=== PATIENT | female | born 2000 | race Hispanic/Latino ===

== ENCOUNTER 2021-06-02 16:42 | Outpatient (CLI) | payer OTHER ==
[~2021-06-02] VITALS: Ht 167.6 cm; Wt 86.1 kg
[2021-06-02 17:01] VITALS: BP 139/93
[2021-06-02 17:14] VITALS: BP 134/88
[2021-06-02] MEDS ORDERED: PRENTAB9 PO (17:17)
[2021-06-02] MEDS ORDERED: FERR325T3 PO (17:17)
[2021-06-02] MEDS ORDERED: HOME MED LIST COMPLETE! XX SCH (17:20)
[2021-06-28] MEDS ORDERED: COLA100C5 PO (05:23)
[2021-06-28] MEDS ORDERED: IBUP80TA PO (05:23)
[2021-06-28] MEDS ORDERED: ACET1TAB55 PO (05:23)
== END 2021-06-02 17:45 | disposition home or self-care (01) ==
LOC: M LDO 16:42
PROVIDERS: ATTEND Obstetrics & Gynecology
DX: O47.1 False labor at or after 37 completed weeks of gestation (principal); Z3A.37 37 weeks gestation of pregnancy; O26.893 Other specified pregnancy related conditions, third trimester; R11.0 Nausea
CPT/HCPCS: 59025; 76815; G0463

== ENCOUNTER → 2022-02-04 | Outpatient (CLI) | payer OTHER ==
[~2022-02-04] MED LIST: ACET1TAB55 PO; COLA100C5 PO; FERR325T3 PO; IBUP80TA PO; PRENTAB9 PO
== END ==
LOC: M RAD 14:30
PROVIDERS: ATTEND Obstetrics & Gynecology
DX: Z36.89 Encounter for other specified antenatal screening (principal); Z3A.18 18 weeks gestation of pregnancy

== ENCOUNTER 2022-02-20 12:37 | Outpatient (CLI) | payer OTHER ==
[~2022-02-20] VITALS: Ht 167.6 cm; Wt 85.7 kg
[~2022-02-20 12:37] MED LIST changes: +ALBUTEROL SULFATE 2.5 MG/0.5 ML INH NEB SOLN INH PRN; +EPINEPHrine INJ 1 MG/ML 1ML AMP IM PRN; +diphenhydrAMINE 50MG/ML VIAL IV PRN; +methylPREDNISolone 125MG 2ML VIAL IV PRN
[2022-02-20] MEDS ORDERED: ACETAMINOPHEN TAB 650MG DOSE (2X325MG) PO ONE (13:00)
[2022-02-20] MEDS ORDERED: IRON SUCROSE 300 MG in NS 250 ML OVER 90 MIN. IV ONE (13:00)
[2022-02-20] MEDS ORDERED: NS 1,000 ML IV SCH (13:00)
[2022-02-20] MEDS ORDERED: diphenhydrAMINE 25MG CAP PO ONE (13:00)
[2022-02-20 13:09] VITALS: BP 119/75
[2022-02-20 14:45] VITALS: BP 114/69
[2022-02-20 15:30] VITALS: BP 117/62
== END 2022-02-20 15:30 | disposition home or self-care (01) ==
LOC: M INFU 12:37
PROVIDERS: ATTEND Obstetrics & Gynecology
DX: D50.8 Other iron deficiency anemias (principal)
CPT/HCPCS: 96365; 96366; J1756

== ENCOUNTER 2022-02-27 12:00 | Outpatient (CLI) | payer OTHER ==
[~2022-02-27] VITALS: Ht 167.6 cm; Wt 85.7 kg
[~2022-02-27 12:00] MED LIST changes: +ACETAMINOPHEN TAB 650MG DOSE (2X325MG) PO ONE; +IRON SUCROSE 300 MG in NS 250 ML OVER 90 MIN. IV ONE; +NS 1,000 ML IV SCH; +diphenhydrAMINE 25MG CAP PO ONE
[2022-02-27 12:10] VITALS: BP 122/57
[2022-02-27 14:23] VITALS: BP 122/70
== END 2022-02-27 14:25 | disposition home or self-care (01) ==
LOC: M INFU 12:00
PROVIDERS: ATTEND Obstetrics & Gynecology
DX: D50.9 Iron deficiency anemia, unspecified (principal)
CPT/HCPCS: 96365; J1756

== ENCOUNTER 2022-03-06 13:00 | Outpatient (CLI) | payer OTHER ==
[2022-03-06 13:00] VITALS: BP 124/58
[~2022-03-06 13:00] MED LIST changes: -ALBUTEROL SULFATE 2.5 MG/0.5 ML INH NEB SOLN INH PRN; +ALBUTEROL SULFATE 2.5MG/0.5ML INH NEB SOLN INH PRN
[2022-03-06 14:00] VITALS: BP 122/68
[2022-03-06 15:15] VITALS: BP 127/63
== END 2022-03-06 15:15 | disposition home or self-care (01) ==
LOC: M INFU 13:00
PROVIDERS: ATTEND Obstetrics & Gynecology
DX: D50.9 Iron deficiency anemia, unspecified (principal)
CPT/HCPCS: 96365; 96366; J1756

== ENCOUNTER 2022-03-13 13:45 | Outpatient (CLI) | payer OTHER ==
[~2022-03-13] VITALS: Ht 167.6 cm; Wt 85.7 kg
[2022-03-13 13:51] VITALS: BP 130/70
[2022-03-13 15:48] VITALS: BP 122/65
== END 2022-03-13 15:45 ==
LOC: M INFU 13:45
PROVIDERS: ATTEND Obstetrics & Gynecology
DX: D50.9 Iron deficiency anemia, unspecified (principal)
CPT/HCPCS: 96365; J1756